=== PATIENT | female | born 1980 | race Caucasian/White ===

== ENCOUNTER 2018-03-10 19:54 | Emergency (ER) | payer OTHER ==
[~2018-03-10 19:54] MED LIST: IBU600 PO; KET10 PO; LEV137 PO; MEP50 PO; PER PO
[2018-03-10] MEDS ORDERED: LEVO-3 PO (20:03)
--- NOTE | 2018-03-10 20:10 | ER Report ---
History and Physical Time Seen By MD: 20:10 Hx. of Stated Complaint: PT REPORTS THAT SHE HAD A 10 MINUTE RUN OF PALPITATIONS ABOUT 20 MINUTES AGO. IS FINE RIGHT NOW. HPI/ROS CHIEF COMPLAINT: Heart palpitations HISTORY OF PRESENT ILLNESS: 37-year-old female patient presents to emergency room with complaint of heart palpitations. Patient states that she got home from work today, she took a bath and then was eating pizza with her . She states that for 2 minutes. Her heart was racing, she was having visible palpitations at her chest as well as palpitations to her neck. Patient states she did not feel dizzy, she was not nauseated. She not feel as if she is going to vomit. She states that she has not taken any medication for this. She states that in the past she has felt some fluttering in her chest. She states that would last for a few moments and then resolve. REVIEW OF SYSTEMS: Respiratory: No cough, no dyspnea. Cardiovascular: As noted above Gastrointestinal: No vomiting, no abdominal pain. Musculoskeletal: No back pain. Allergies: Coded Allergies: sulfamethoxazole (Verified Allergy, Mild, hives, 03/10/18) trimethoprim (Verified Allergy, Mild, hives, 03/10/18) Home Meds Reported Medications Levothyroxine Sodium (LEVOTHYROXINE SODIUM) 100 Mcg Tablet, 150 MCG PO QDAY, TAB 03/10/18 Discontinued Reported Medications Oxycodone/Acetaminophen (OXYCODONE/ACETAMINOPHEN 5MG/325 MG) 5 Mg/325 Mg Tab, 1 - 2 TAB PO Q4H Y, #30 07/13/12 Ketorolac Tromethamine (Toradol) 10 Mg Tab, 10 MG PO QID, #20 07/13/12 Meperidine Hcl (Demerol) 50 Mg Tab, 25 MG PO Q3-4H 07/08/12 Levothyroxine Sodium (Synthroid/Levothroid) 0.137 Mg Tab, 0.137 MG PO QDAY 07/08/12 Past Medical/Surgical History Patient has a past medical history of Graves' disease, hypothyroidism. Patient has surgical history of tonsillectomy, cholecystectomy, . Reviewed Nurses Notes: Yes Constitutional Vital Sign - Last 24 Hours 03/10/18 03/10/18 03/10/18 03/10/18 20:00 20:03 20:15 20:30 Temp 97.8 Pulse 101 100 101 104 Resp 12 19 20 18 B/P (MAP) 127/97 (107) 127/97 122/84 (97) Pulse Ox 96 96 96 96 O2 Delivery Room Air 03/10/18 03/10/18 20:30 21:00 Pulse 104 106 Resp 18 9 B/P (MAP) 122/84 (97) 117/77 (90) Pulse Ox 96 95 Physical Exam General Appearance: The patient is alert, has no immediate need for airway protection and no current signs of toxicity. ENT: Benign membranes are pearly-alexandre, auditory canals are patent, mucous membranes are moist. Respiratory: Chest is non tender, lungs are clear to auscultation. Cardiac: regular rate and rhythm Gastrointestinal: Abdomen is soft and non tender, no masses, bowel sounds normal. Musculoskeletal: Neck: Neck is supple and non tender. Extremities have full range of motion and are non tender. Skin: No rashes or lesions. DIFFERENTIAL DIAGNOSIS: After history and physical exam differential diagnosis was considered for cardiac arrhythmia, atrial flutter, A. fib, SVT. Medical Decision Making Data Points Result Diagram: 03/10/18201903/10/182019 Laboratory Hematology Test 03/10/18 20:20 03/10/18 20:58 Red Blood Count 5.06 M/uL (4.17-5.56) Mean Corpuscular Volume 91.3 fL (80.0-96.0) Mean Corpuscular Hemoglobin 31.6 pg (26.0-33.0) Mean Corpuscular Hemoglobin Concent 34.6 g/dL (32.0-36.0) Red Cell Distribution Width 12.9 % (11.5-14.5) Mean Platelet Volume 7.5 fL (7.2-11.1) Neutrophils (%) (Auto) 57.8 % (39.4-72.5) Lymphocytes (%) (Auto) 30.6 % (17.6-49.6) Monocytes (%) (Auto) 9.4 % (4.1-12.4) Eosinophils (%) (Auto) 1.5 % (0.4-6.7) Basophils (%) (Auto) 0.7 % (0.3-1.4) Nucleated RBC Relative Count (auto) 0.0 /100WBC Neutrophils # (Auto) 4.5 K/uL (2.0-7.4) Lymphocytes # (Auto) 2.4 K/uL (1.3-3.6) Monocytes # (Auto) 0.7 K/uL (0.3-1.0) Eosinophils # (Auto) 0.1 K/uL (0.0-0.5) Basophils # (Auto) 0.1 K/uL (0.0-0.1) Nucleated RBC Absolute Count (auto) 0.00 K/uL Sodium Level 139 mmol/L (137-145) Potassium Level 3.6 mmol/L (3.5-5.0) Chloride Level 100 mmol/L (98-107) Carbon Dioxide Level 26 mmol/L (22-31) Blood Urea Nitrogen 16 mg/dl (7-18) Creatinine 0.90 mg/dl (0.52-1.04) Glomerular Filtration Rate Calc > 60.0 Random Glucose 108 mg/dl (75-110) Calcium Level 10.0 mg/dl (8.4-10.2) Total Bilirubin 0.6 mg/dl (0.2-1.3) Aspartate Amino Transf (AST/SGOT) 26 U/L (0-35) Alanine Aminotransferase (ALT/SGPT) 19 U/L (0-56) Alkaline Phosphatase 61 U/L (0-126) Troponin I < 0.012 ng/ml Total Protein 7.2 gm/dl (6.3-8.2) Albumin 4.4 g/dl (3.5-5.0) Human Chorionic Gonadotropin, Qual Negative (NEGATIVE) Urine Color Straw Urine Clarity Clear Urine pH 6.0 pH (4.8-9.5) Urine Specific [place] 1.005 Urine Protein Negative mg/dL (NEGATIVE) Urine Glucose (UA) Negative mg/dL (NEGATIVE) Urine Ketones Negative mg/dL (NEGATIVE) Urine Blood Small (NEGATIVE) Urine Nitrite Negative (NEGATIVE) Urine Bilirubin Negative (NEGATIVE) Urine Urobilinogen Negative mg/dL (0.2-1.9) Urine Leukocyte Esterase Negative (NEGATIVE) Urine RBC <1 /HPF (0-2/HPF) Urine WBC 1 /HPF (0-5/HPF) Urine Squamous Epithelial Cells Many /LPF (</=FEW) Urine Bacteria Negative /HPF (NONE-FEW) Urine Mucus None /HPF (NONE-FEW) Chemistry Test 03/10/18 20:20 03/10/18 20:58 White Blood Count 7.7 k/uL (4.5-11.0) Red Blood Count 5.06 M/uL (4.17-5.56) Hemoglobin 16.0 g/dL (12.0-16.0) Hematocrit 46.2 % (34.0-47.0) Mean Corpuscular Volume 91.3 fL (80.0-96.0) Mean Corpuscular Hemoglobin 31.6 pg (26.0-33.0) Mean Corpuscular Hemoglobin Concent 34.6 g/dL (32.0-36.0) Red Cell Distribution Width 12.9 % (11.5-14.5) Platelet Count 243 K/uL (150-450) Mean Platelet Volume 7.5 fL (7.2-11.1) Neutrophils (%) (Auto) 57.8 % (39.4-72.5) Lymphocytes (%) (Auto) 30.6 % (17.6-49.6) Monocytes (%) (Auto) 9.4 % (4.1-12.4) Eosinophils (%) (Auto) 1.5 % (0.4-6.7) Basophils (%) (Auto) 0.7 % (0.3-1.4) Nucleated RBC Relative Count (auto) 0.0 /100WBC Neutrophils # (Auto) 4.5 K/uL (2.0-7.4) Lymphocytes # (Auto) 2.4 K/uL (1.3-3.6) Monocytes # (Auto) 0.7 K/uL (0.3-1.0) Eosinophils # (Auto) 0.1 K/uL (0.0-0.5) Basophils # (Auto) 0.1 K/uL (0.0-0.1) Nucleated RBC Absolute Count (auto) 0.00 K/uL Glomerular Filtration Rate Calc > 60.0 Calcium Level 10.0 mg/dl (8.4-10.2) Total Bilirubin 0.6 mg/dl (0.2-1.3) Aspartate Amino Transf (AST/SGOT) 26 U/L (0-35) Alanine Aminotransferase (ALT/SGPT) 19 U/L (0-56) Alkaline Phosphatase 61 U/L (0-126) Troponin I < 0.012 ng/ml Total Protein 7.2 gm/dl (6.3-8.2) Albumin 4.4 g/dl (3.5-5.0) Human Chorionic Gonadotropin, Qual Negative (NEGATIVE) Urine Color Straw Urine Clarity Clear Urine pH 6.0 pH (4.8-9.5) Urine Specific [place] 1.005 Urine Protein Negative mg/dL (NEGATIVE) Urine Glucose (UA) Negative mg/dL (NEGATIVE) Urine Ketones Negative mg/dL (NEGATIVE) Urine Blood Small (NEGATIVE) Urine Nitrite Negative (NEGATIVE) Urine Bilirubin Negative (NEGATIVE) Urine Urobilinogen Negative mg/dL (0.2-1.9) Urine Leukocyte Esterase Negative (NEGATIVE) Urine RBC <1 /HPF (0-2/HPF) Urine WBC 1 /HPF (0-5/HPF) Urine Squamous Epithelial Cells Many /LPF (</=FEW) Urine Bacteria Negative /HPF (NONE-FEW) Urine Mucus None /HPF (NONE-FEW) Urinalysis Test 03/10/18 20:58 Urine Color Straw Urine Clarity Clear Urine pH 6.0 pH (4.8-9.5) Urine Specific [place] 1.005 Urine Protein Negative mg/dL (NEGATIVE) Urine Glucose (UA) Negative mg/dL (NEGATIVE) Urine Ketones Negative mg/dL (NEGATIVE) Urine Blood Small (NEGATIVE) Urine Nitrite Negative (NEGATIVE) Urine Bilirubin Negative (NEGATIVE) Urine Urobilinogen Negative mg/dL (0.2-1.9) Urine Leukocyte Esterase Negative (NEGATIVE) Urine RBC <1 /HPF (0-2/HPF) Urine WBC 1 /HPF (0-5/HPF) Urine Squamous Epithelial Cells Many /LPF (</=FEW) Urine Bacteria Negative /HPF (NONE-FEW) Urine Mucus None /HPF (NONE-FEW) EKG/Imaging EKG Interpretation 12 lead EKG: Rhythm: Sinus tachycardia with ventricular rate of 106 bpm [place]: normal QRS: normal ST segments: normal Imaging Examination: CHEST PA AND LAT Comparison: None. History: rapid heart rate Findings: No consolidation, nodule, or peribronchial inflammation. No pneumothorax, edema, or effusion. Cardiac and hilar contour size is within normal limits. Cholecystectomy clips. Osseous structures are intact. IMPRESSION: Negative chest. Report Dictated By: Az Barrios MD at 03/10/2018 8:58 PM Report E-Signed By: Az Barrios MD at 03/10/2018 8:59 PM ED Course/Re-evaluation ED Course Patient was admitted to exam room, history and physical were obtained. Differential diagnoses were considered. On exam heart is regular, lungs are clear. A CBC, CMP, hCG, troponin, EKG, chest x-ray were done. EKG showed a sinus tachycardia, chest x-ray was negative. Remainder the labs were unremarkable. I discussed the findings with the patient. We will go ahead and set the patient up with a Holter monitor. Patient will be discharged home with this time. The results of the Holter monitor will be sent to Lina Barahona at the [facility]. I discussed this with the patient and she verbalized understanding and agreement with plan. Decision to Disposition Date: Mar 10, 2018 Decision to Disposition Time: 21:13 Depart Departure Latest Vital Signs Vital Signs Date Time Temp Pulse Resp B/P (MAP) Pulse Ox O2 Delivery O2 Flow Rate FiO2 03/10/18 21:00 106 9 117/77 (90) 95 03/10/18 20:03 97.8 Room Air Impression: Primary Impression: Heart palpitations Condition: Improved Disposition: HOME OR SELF-CARE Referrals: GE CONTI (PCP) Patient Instructions: Palpitations (ED) Additional Instructions: Increase fluid intake. Get plenty of rest. Follow up with Leticia Barahona in the next week. Limit activity by how you are feeling, but you may continue with normal activity. Continue with current medications. Return to the ER if condition worsens. JENNA ADEN Mar 10, 2018 20:10
[2018-03-10] MEDS ORDERED: NS(*) 0.9% 1000 ML BAG 1,000 ML IV ONE (20:24)
--- NOTE | 2018-03-10 20:24 | EKG ---
FACILITY: [facility] PATIENT NAME: LIZABETH SNIDER : [id number] MR: [id number] V: [id number] EXAM DATE: ORDERING PHYSICIAN: JENNA ADEN TECHNOLOGIST: AMNA Test Reason : CARDIAC Blood Pressure : / mmHG Vent. Rate : 106 BPM Atrial Rate : 106 BPM P-R Int : 148 ms QRS Dur : 088 ms QT Int : 350 ms P-R-T Axes : 068 065 011 degrees QTc Int : 464 ms Sinus tachycardia Possible Left atrial enlargement T flattening consistent with inferior ischemia vs normal variant R wave progression consistent with old ant/sep AL vs lead placement No previous to compare Confirmed by ANDRY DE LOS SANTOS ([id number]) on 03/11/2018 12:39:41 AM Referred By: Confirmed By:ANDRY DE LOS SANTOS
[2018-03-10 20:31] LABS: PLATELET COUNT, AUTOMATED 243 K/uL (150-450)
--- NOTE | 2018-03-10 21:03 | RADIOLOGY IMAGING REPORT ---
FACILITY: [facility] [place] PATIENT NAME: Mell Burroughs : 1980 MR: [id number] V: [id number] EXAM DATE: ORDERING PHYSICIAN: JENNA ADEN TECHNOLOGIST: Location: [facility] [place] Patient: Mell Burroughs : 1980 Visit/Account:[id number] Date of Sevice: 03/10/2018 Examination: CHEST PA AND LAT Comparison: None. History: rapid heart rate Findings: No consolidation, nodule, or peribronchial inflammation. No pneumothorax, edema, or effusio n. Cardiac and hilar contour size is within normal limits. Cholecystectomy clips. Osseous structures are intact. IMPRESSION: Negative chest. Report Dictated By: Az Barrios MD at 03/10/2018 8:58 PM Report E-Signed By: Az Barrios MD at 03/10/2018 8:59 PM WSN:[id number]
[2018-03-10 21:30] VITALS: BP 118/82
--- NOTE | 2018-03-14 19:56 | RT HOLTER TEST ---
FACILITY: [facility] [place] PATIENT NAME: LIZABETH SNIDER : [id number] MR: [id number] V: [id number] EXAM DATE: ORDERING PHYSICIAN: JENNA ADEN TECHNOLOGIST: AMNA Hook-up date: 2018-03-10 21:36:00 Duration: 47:59:00 Test Indications: PALPITATIONS Medications: N/A [id number] QRS complexes 439 Ventricular ectopics which represent <1 % of total QRS comp. 32 Supraventricular ectopics which represent <1 % of total QRS comp. * Paced QRS complexes which represent % of total QRS comp. VENTRICULAR ECTOPY 425 Isolated 0 Bigeminal Cycles 7 Couplets 0 Runs 0 Beats in Runs * Beats LONGEST at * BPM at :: -- * Beats FASTEST at * BPM at :: -- SUPRAVENTRICULAR ECTOPY 32 Isolated 0 Couplets 0 Runs 0 Beats in Runs * Beats LONGEST at * BPM at :: -- * Beats FASTEST at * BPM at :: -- HEART RATES 45 MIN at 04:13:53 2018-03-12 82 AVG 141 MAX at 21:37:30 2018-03-10 LONGEST RR 1.520 secs at 02:42:06 2018-03-12 S-T LEVELS Channel 1 -12.800 mm MIN at 21:36:00 2018-03-10 -12.800 mm MAX at 21:36:00 2018-03-10 Channel 2 -12.800 mm MIN at 21:36:00 2018-03-10 -12.800 mm MAX at 21:36:00 2018-03-10 Channel 3 -12.800 mm MIN at 21:36:00 2018-03-10 -12.800 mm MAX at 21:36:00 2018-03-10 The patient was in a sinus rhythm throughout most of the test with occassional asymptomatic ventricul ar ectopy and rare asymptomatic supraventricular ectopy. The one event trigger showed a normal sinus rhythm. Confirmed by ANDRY DE LOS SANTOS ([id number]) on 03/14/2018 7:56:02 PM Referred By: Overread By: ANDRY DE LOS SANTOS
== END 2018-03-10 21:44 | disposition home or self-care (01) ==
LOC: ER 20:37
DX: R00.0 Tachycardia, unspecified (principal); R00.2 Palpitations
CPT/HCPCS: 71046; 81001; 84484; 84703; 85025; 93005; 93225; 99284; J7030; 82040; 82247; 82310; 82374; 82435; 82565; 82947; 84075; 84132; 84155; 84295; 84450; 84460; 84520; 93226

== ENCOUNTER → 2018-07-30 | Outpatient (CLI) | payer OTHER ==
[~2018-07-30] MED LIST changes: +LEVO-3 PO
[2018-07-30 10:15] LABS: PLATELET COUNT, AUTOMATED 267 K/uL (150-450)
== END ==
LOC: LAB 08:20
PROVIDERS: ATTEND Student in an Organized Health Care Education/Training Program
DX: Z34.91 Encounter for supervision of normal pregnancy, unspecified, first trimester (principal)
CPT/HCPCS: 36415; 81001; 85025; 86592; 86703; 86762; 86850; 86900; 86901; 87088; 87340

== ENCOUNTER 2018-08-05 01:57 | Emergency (ER) | payer OTHER ==
[~2018-08-05 01:57] MED LIST changes: -LEVO200T50 PO; -PREN-127 PO
--- NOTE | 2018-08-05 02:04 | ER Report ---
History and Physical Time Seen By MD: 02:04 HPI/ROS CHIEF COMPLAINT: Right lower quadrant abdominal pain HISTORY OF PRESENT ILLNESS: Patient is a 37-year-old female here with complaints of right lower quadrant abdominal pain which woke patient from sleep not associated nausea without vomiting. Patient reports having similar symptoms the other night that woke her from sleep which abated without intervention. Patient was concerned that this was the 2nd repeat episode of similar symptoms prompting evaluation. Patient reports having a prior cholecystectomy however she reports having her appendix intact. Denies urinary complaints, diarrhea, fevers or chills. She reports that the pain has since subsided however kept her from getting out of bed due to the severity of pain. Patient denies chest pain, shortness of breath, vomiting, hematuria, melena. REVIEW OF SYSTEMS: Constitutional: No fever, no chills. Eyes: No discharge. ENT: No sore throat. Cardiovascular: No chest pain, no palpitations. Respiratory: No cough, no shortness of breath. Gastrointestinal: + RLQ abdominal pain, no vomiting, + nausea Genitourinary: No hematuria. Musculoskeletal: No back pain. Skin: No rashes. Neurological: No headache. Allergies: Coded Allergies: sulfamethoxazole (Verified Allergy, Mild, hives, 08/05/18) trimethoprim (Verified Allergy, Mild, hives, 08/05/18) Home Meds Active Scripts Levothyroxine Sodium (LEVOTHYROXINE SODIUM) 100 Mcg Tablet, 175 MCG PO QDAY, #1 TAB Prov:ALENA ROSS DO 07/30/18 Reported Medications Vits W-Ca,Fe,Fa(<1MG) ( VITAMINS) 1 Each Tablet, 1 EACH PO DAILY, TAB 08/05/18 Smoking Status: Never Smoker Constitutional Vital Sign - Last 24 Hours 08/05/18 02:03 Temp 97.6 Pulse 68 Resp 14 B/P (MAP) 112/45 Pulse Ox 93 O2 Delivery Room Air Intake and Output 08/04/18 08/04/18 08/05/18 15:00 23:00 07:00 Intake Total 1000 ml Balance 1000 ml Physical Exam General Appearance: The patient is alert, has no immediate need for airway protection and no signs of toxicity. NAD Eyes: Pupils equal and round no pallor or injection. ENT, Mouth: Mucous membranes are moist. Respiratory: There are no retractions, lungs are clear to auscultation. Cardiovascular: Regular rate and rhythm. Gastrointestinal: Abdomen is soft and + mildly tender in the RLQ, no masses, bowel sounds normal Neurological: No focal neurological deficit Skin: Warm and dry, no rashes. Musculoskeletal: Neck is supple non tender. Extremities are nontender, nonswollen and have full range of motion. DIFFERENTIAL DIAGNOSIS: After history and physical exam differential diagnosis was considered for abdominal pain including but not limited to appendicitis, cholecystitis, gastritis and urinary tract infection. Medical Decision Making Data Points Result Diagram: 08/05/1821908/05/18 022 Laboratory Hematology Test 08/05/18 02:00 08/05/18 02:20 Urine Color Yellow Urine Clarity Clear Urine pH 6.0 pH (4.8-9.5) Urine Specific [place] 1.021 Urine Protein Negative mg/dL (NEGATIVE) Urine Glucose (UA) Negative mg/dL (NEGATIVE) Urine Ketones Negative mg/dL (NEGATIVE) Urine Blood Negative (NEGATIVE) Urine Nitrite Negative (NEGATIVE) Urine Bilirubin Negative (NEGATIVE) Urine Urobilinogen Negative mg/dL (0.2-1.9) Urine Leukocyte Esterase Negative (NEGATIVE) Urine RBC None /HPF (0-2/HPF) Urine WBC 1 /HPF (0-5/HPF) Urine Squamous Epithelial Cells Many /LPF (</=FEW) Urine Bacteria Negative /HPF (NONE-FEW) Urine Mucus Few /HPF (NONE-FEW) Red Blood Count 4.32 M/uL (4.17-5.56) Mean Corpuscular Volume 91.5 fL (80.0-96.0) Mean Corpuscular Hemoglobin 31.9 pg (26.0-33.0) Mean Corpuscular Hemoglobin Concent 34.9 g/dL (32.0-36.0) Red Cell Distribution Width 13.5 % (11.5-14.5) Mean Platelet Volume 7.7 fL (7.2-11.1) Neutrophils (%) (Auto) 63.5 % (39.4-72.5) Lymphocytes (%) (Auto) 26.8 % (17.6-49.6) Monocytes (%) (Auto) 7.0 % (4.1-12.4) Eosinophils (%) (Auto) 1.8 % (0.4-6.7) Basophils (%) (Auto) 0.9 % (0.3-1.4) Nucleated RBC Relative Count (auto) 0.0 /100WBC Neutrophils # (Auto) 6.0 K/uL (2.0-7.4) Lymphocytes # (Auto) 2.5 K/uL (1.3-3.6) Monocytes # (Auto) 0.7 K/uL (0.3-1.0) Eosinophils # (Auto) 0.2 K/uL (0.0-0.5) Basophils # (Auto) 0.1 K/uL (0.0-0.1) Nucleated RBC Absolute Count (auto) 0.00 K/uL Sodium Level 135 mmol/L (137-145) Potassium Level 3.5 mmol/L (3.5-5.0) Chloride Level 103 mmol/L (98-107) Carbon Dioxide Level 25 mmol/L (22-31) Blood Urea Nitrogen 13 mg/dl (7-18) Creatinine 0.60 mg/dl (0.52-1.04) Glomerular Filtration Rate Calc > 60.0 Random Glucose 83 mg/dl (75-110) Calcium Level 9.0 mg/dl (8.4-10.2) Total Bilirubin 0.3 mg/dl (0.2-1.3) Aspartate Amino Transf (AST/SGOT) 14 U/L (0-35) Alanine Aminotransferase (ALT/SGPT) 23 U/L (0-56) Alkaline Phosphatase 37 U/L (0-126) C-Reactive Protein < 0.5 mg/dl (<1.0) Total Protein 5.7 g/dl (6.3-8.2) Albumin 3.3 g/dl (3.5-5.0) Lipase 89 U/L (23-300) Human Chorionic Gonadotropin, Quant 44005 mIU/ml Chemistry Test 08/05/18 02:00 08/05/18 02:20 Urine Color Yellow Urine Clarity Clear Urine pH 6.0 pH (4.8-9.5) Urine Specific [place] 1.021 Urine Protein Negative mg/dL (NEGATIVE) Urine Glucose (UA) Negative mg/dL (NEGATIVE) Urine Ketones Negative mg/dL (NEGATIVE) Urine Blood Negative (NEGATIVE) Urine Nitrite Negative (NEGATIVE) Urine Bilirubin Negative (NEGATIVE) Urine Urobilinogen Negative mg/dL (0.2-1.9) Urine Leukocyte Esterase Negative (NEGATIVE) Urine RBC None /HPF (0-2/HPF) Urine WBC 1 /HPF (0-5/HPF) Urine Squamous Epithelial Cells Many /LPF (</=FEW) Urine Bacteria Negative /HPF (NONE-FEW) Urine Mucus Few /HPF (NONE-FEW) White Blood Count 9.5 k/uL (4.5-11.0) Red Blood Count 4.32 M/uL (4.17-5.56) Hemoglobin 13.8 g/dL (12.0-16.0) Hematocrit 39.6 % (34.0-47.0) Mean Corpuscular Volume 91.5 fL (80.0-96.0) Mean Corpuscular Hemoglobin 31.9 pg (26.0-33.0) Mean Corpuscular Hemoglobin Concent 34.9 g/dL (32.0-36.0) Red Cell Distribution Width 13.5 % (11.5-14.5) Platelet Count 233 K/uL (150-450) Mean Platelet Volume 7.7 fL (7.2-11.1) Neutrophils (%) (Auto) 63.5 % (39.4-72.5) Lymphocytes (%) (Auto) 26.8 % (17.6-49.6) Monocytes (%) (Auto) 7.0 % (4.1-12.4) Eosinophils (%) (Auto) 1.8 % (0.4-6.7) Basophils (%) (Auto) 0.9 % (0.3-1.4) Nucleated RBC Relative Count (auto) 0.0 /100WBC Neutrophils # (Auto) 6.0 K/uL (2.0-7.4) Lymphocytes # (Auto) 2.5 K/uL (1.3-3.6) Monocytes # (Auto) 0.7 K/uL (0.3-1.0) Eosinophils # (Auto) 0.2 K/uL (0.0-0.5) Basophils # (Auto) 0.1 K/uL (0.0-0.1) Nucleated RBC Absolute Count (auto) 0.00 K/uL Glomerular Filtration Rate Calc > 60.0 Calcium Level 9.0 mg/dl (8.4-10.2) Total Bilirubin 0.3 mg/dl (0.2-1.3) Aspartate Amino Transf (AST/SGOT) 14 U/L (0-35) Alanine Aminotransferase (ALT/SGPT) 23 U/L (0-56) Alkaline Phosphatase 37 U/L (0-126) C-Reactive Protein < 0.5 mg/dl (<1.0) Total Protein 5.7 g/dl (6.3-8.2) Albumin 3.3 g/dl (3.5-5.0) Lipase 89 U/L (23-300) Human Chorionic Gonadotropin, Quant 86965 mIU/ml Urinalysis Test 08/05/18 02:00 Urine Color Yellow Urine Clarity Clear Urine pH 6.0 pH (4.8-9.5) Urine Specific [place] 1.021 Urine Protein Negative mg/dL (NEGATIVE) Urine Glucose (UA) Negative mg/dL (NEGATIVE) Urine Ketones Negative mg/dL (NEGATIVE) Urine Blood Negative (NEGATIVE) Urine Nitrite Negative (NEGATIVE) Urine Bilirubin Negative (NEGATIVE) Urine Urobilinogen Negative mg/dL (0.2-1.9) Urine Leukocyte Esterase Negative (NEGATIVE) Urine RBC None /HPF (0-2/HPF) Urine WBC 1 /HPF (0-5/HPF) Urine Squamous Epithelial Cells Many /LPF (</=FEW) Urine Bacteria Negative /HPF (NONE-FEW) Urine Mucus Few /HPF (NONE-FEW) EKG/Imaging Imaging Ultrasound showed no acute findings in the right lower quadrant the abdomen- please see official radiology report for complete details ED Course/Re-evaluation ED Course Patient is a 37-year-old female here with complaints of right lower quadrant abdominal pain which woke the patient from rest at approximately 2 AM. Pain has since subsided however the patient reports having similar pain the other night which woke her from sleep. Patient reports being 10-1/2 weeks at time of evaluation and reportedly was going to have an ultrasound this afternoon which is her 1st ultrasound during this . Patient reports that the pain is since dissipated as well has the nausea which was associated with it. Labs are unremarkable, urinalysis was not infectious, patient did not have leukocytosis, CRP was negative. Ultrasound of the right lower quadrant was completed to evaluate for appendicitis as the patient still has her appendix. Ultrasound showed no acute signs of appendicitis or free fluid in the right lower quadrant and the abdomen. Patient was advised to follow-up with her previously scheduled appointments and to return promptly if she develops recurrent pain, fevers, nausea, vomiting. Decision to Disposition Date: Aug 05, 2018 Decision to Disposition Time: 04:03 Depart Departure Latest Vital Signs Vital Signs Date Time Temp Pulse Resp B/P (MAP) Pulse Ox O2 Delivery O2 Flow Rate FiO2 08/05/18 02:03 97.6 68 14 112/45 93 Room Air Impression: Primary Impression: Abdominal pain during Condition: Improved Disposition: HOME OR SELF-CARE Patient Instructions: Abdominal Pain in (ED) Additional Instructions: Please return promptly if you develop recurrent pain, nausea, vomiting, fevers or chills. Please keep all previously scheduled appointments. ELIAN CHENG DO Aug 05, 2018 02:04
[2018-08-05] MEDS ORDERED: PREN-127 PO (02:08)
[2018-08-05] MEDS ORDERED: NS(*) 0.9% 1000 ML BAG 1,000 ML IV ONE (02:17)
[2018-08-05 02:31] LABS: PLATELET COUNT, AUTOMATED 233 K/uL (150-450)
[2018-08-05 04:00] VITALS: BP 108/65
--- NOTE | 2018-08-05 04:28 | RADIOLOGY IMAGING REPORT ---
FACILITY: [facility] - [place] PATIENT NAME: Mell Burroughs : 1980 MR: [id number] V: [id number] EXAM DATE: ORDERING PHYSICIAN: ELIAN CHENG TECHNOLOGIST: Location: [facility] Patient: Mell Burroughs : 1980 Visit/Account:[id number] Date of Sevice: 08/05/2018 Limited ultrasound of the abdomen: Indication: Right lower quadrant pain. The patient is in the first trimester. Technique: Targeted imaging was performed in the right lower quadrant. Comparison: None. Findings: The appendix was not clearly visualized. There is no evidence of fluid collection, free flu id, or soft tissue mass. An intrauterine gestation was partially visualized, but not specifically evaluated. No focal abnormal ity is clearly identified in the right adnexal region. Impression: Unremarkable ultrasound evaluation. Report Dictated By: Nahum Rosario MD at 08/05/2018 4:18 AM Report E-Signed By: Nahum Rosario MD at 08/05/2018 4:23 AM WSN:[id number]
[2018-08-06] MEDS ORDERED: LEVO200T50 PO (16:40)
== END 2018-08-05 04:27 | disposition home or self-care (01) ==
LOC: ER 02:14
DX: O26.891 Other specified pregnancy related conditions, first trimester (principal); Z3A.10 10 weeks gestation of pregnancy
CPT/HCPCS: 76705; 81001; 83690; 84702; 85025; 86140; 96360; 99284; J7030; 82040; 82247; 82310; 82374; 82435; 82565; 82947; 84075; 84132; 84155; 84295; 84450; 84460; 84520

== ENCOUNTER → 2018-08-05 | Outpatient (CLI) | payer OTHER ==
[~2018-08-05] MED LIST changes: +LEVO200T50 PO; +PREN-127 PO
== END ==
LOC: LAB 08:10
PROVIDERS: ATTEND Student in an Organized Health Care Education/Training Program
DX: O09.521 Supervision of elderly multigravida, first trimester (principal); O99.280 Endocrine, nutritional and metabolic diseases complicating pregnancy, unspecified trimester
CPT/HCPCS: 36415; 82306; 84439; 84443; 84481; 87491; 87591

== ENCOUNTER → 2018-09-16 | Outpatient (CLI) | payer OTHER ==
[~2018-09-16] MED LIST changes: +LEVO200T50 PO; +PREN-127 PO
== END ==
LOC: LAB 13:13
PROVIDERS: ATTEND Obstetrics & Gynecology
DX: O99.282 Endocrine, nutritional and metabolic diseases complicating pregnancy, second trimester (principal)
CPT/HCPCS: 36415; 84436; 84443

== ENCOUNTER → 2018-09-23 | Outpatient (CLI) | payer OTHER ==
--- NOTE | 2018-09-23 11:04 | RADIOLOGY IMAGING REPORT ---
FACILITY: [facility] [place] PATIENT NAME: Mell Burroughs : 1980 MR: [id number] V: [id number] EXAM DATE: ORDERING PHYSICIAN: ALENA ROSS TECHNOLOGIST: Location: [facility] Patient: Mell Burroughs : 1980 Visit/Account:[id number] Date of Sevice: 09/23/2018 OB Ultrasound > 14 weeks with anatomic evaluation HISTORY: Anatomic survey COMPARISON STUDIES: None available FINDINGS: Intrauterine gestations: one presentation: Variable heart rate: 142 bpm Amniotic fluid index: 16.10 cm Largest amniotic fluid pocket 4.16 cm Placenta: Anterior, along the lower uterine segment. Note is made of a complete placenta previa. Uterus: gravid, otherwise normal Maternal adnexa: Unremarkable Cervix: long and closed Gestational Parameters: BPD: 5.00 cm 21 weeks and 1 day HC: 18.46 cm 20 weeks and 6 days AC: 16.47 cm 21 weeks and 4 days FL: 3.28 cm 20 weeks and 2 days Average ultrasound age (AUA): 21 weeks and 0 days Estimated gestational age based on given LMP datin weeks and 6 days ANKUSH: 02/03/2019 based on today's ultrasound age Estimated weight (EFW): 388 g +/-57 g EFW: 49th percentile based on LMP dating Anatomic Survey: Intracranial structures, 4-chamber heart, stomach, kidneys, urinary bladder, spine, 3-vessel cord and cord insertion are unremarkable. Two upper and two lower extremities visualized. IMPRESSION: 1. Single live intrauterine gestation; estimated ultrasound age 21 weeks and 0 days. 2. Unremarkable anatomic survey. 3. Incidental note of complete placenta previa. Report Dictated By: Alfredo Brito MD at 09/23/2018 10:55 AM Report E-Signed By: Alfredo Brito MD at 09/23/2018 10:59 AM WSN:[id number]
== END ==
LOC: RAD 08:29
PROVIDERS: ATTEND Student in an Organized Health Care Education/Training Program
DX: O44.02 Complete placenta previa NOS or without hemorrhage, second trimester (principal); Z3A.21 21 weeks gestation of pregnancy

== ENCOUNTER → 2018-11-04 | Outpatient (CLI) | payer OTHER ==
[~2018-11-04] MED LIST changes: +DIPH0.5D12 IM; +FLU60SYR36 IM
[2018-11-04 15:03] LABS: PLATELET COUNT, AUTOMATED 263 K/uL (150-450)
== END ==
LOC: LAB 08:12
PROVIDERS: ATTEND Student in an Organized Health Care Education/Training Program
DX: O09.522 Supervision of elderly multigravida, second trimester (principal)
CPT/HCPCS: 36415; 82950; 85025

== ENCOUNTER → 2018-12-02 | Outpatient (CLI) | payer OTHER | LOC: LAB 11:44 | PROVIDERS: ATTEND Student in an Organized Health Care Education/Training Program | DX: E03.9 Hypothyroidism, unspecified (principal) | CPT/HCPCS: 36415; 84443; 84445 ==